=== PATIENT | male | born 1985 | race Caucasian/White ===

== ENCOUNTER 2018-05-15 08:14 | Emergency (ER) | payer OTHER ==
[~2018-05-15] VITALS: Ht 182.9 cm; Wt 79.6 kg
[2018-05-15 09:20] LABS: BASOPHILS # (AUTO) 0.05 x10^3/uL (0-0.1); BASOPHILS % (AUTO) 1 % (0-1); EOSINOPHILS # (AUTO) 0.05 x10^3/uL (0-0.4); EOSINOPHILS % (AUTO) 1 % (1-7); LYMPHOCYTES # (AUTO) 1.01 x10^3/uL (1-3.4); LYMPHOCYTES % (AUTO) 13 % (22-44); MD NO; MEAN CORPUSCULAR HEMOGLOBIN 28.4 pg (27.5-34.5); MEAN CORPUSCULAR HGB CONC 33.5 g/dL (33.2-36.2); MEAN CORPUSCULAR VOLUME 84.8 fL (81-97); MEAN PLATELET VOLUME 7.5 fL (7.4-10.4); MONOCYTES # (AUTO) 0.74 x10^3/uL (0.2-0.8); MONOCYTES % (AUTO) 9 % (2-9); NEUTROPHILS # (AUTO) 6.15 x10^3/uL (1.8-6.8); NEUTROPHILS % (AUTO) 77 % (42-75); PLATELET COUNT 237 x10^3/uL (130-400); RED BLOOD COUNT 5.23 x10^6/uL (4.38-5.82); RED CELL DISTRIBUTION WIDTH 12.9 % (9.4-14.8)
[2018-05-15 09:32] LABS: ALANINE AMINOTRANSFERASE 23 U/L (12-78); ALBUMIN 3.3 g/dL (3.4-5.0); ANION GAP 9 mmol/L (5-15); CHLORIDE 103 mmol/L (98-107); CREATININE 1.07 mg/dL (0.7-1.3)
[2018-05-15 09:36] LABS: ALKALINE PHOSPHATASE 62 U/L (45-117); BILIRUBIN,TOTAL 0.8 mg/dL (0.2-1.0); TOTAL PROTEIN 7.2 g/dL (6.4-8.2); TROPONIN I < 0.015 ng/mL (0.000-0.045)
[2018-05-15 10:45] VITALS: BP 115/71
== END 2018-05-15 10:48 | disposition home or self-care (01) ==
LOC: ED 10:40
DX: R07.89 Other chest pain (principal); J15.9 Unspecified bacterial pneumonia
CPT/HCPCS: 36415; 71046; 80053; 83690; 84484; 85025; 93005; 99285

== ENCOUNTER 2018-05-18 14:34 | Emergency (ER) | payer OTHER ==
[~2018-05-18] VITALS: Ht 182.9 cm; Wt 79.1 kg
[2018-05-18] MEDS ORDERED: MORPHINE SULFATE 4 MG/ML, 1ML ONE (15:24)
[2018-05-18] MEDS ORDERED: KETOROLAC 30 MG/1 ML ONE (15:24)
[2018-05-18] MEDS ORDERED: AZIT500T2 PO (15:29)
[2018-05-18] MEDS ORDERED: MORPHINE SULFATE 4 MG/ML, 1ML IVPush PRN (15:30)
[2018-05-18] MEDS ORDERED: KETOROLAC 30 MG/1 ML IVPush ONE (15:30)
[2018-05-18 15:32] LABS: ALANINE AMINOTRANSFERASE 23 U/L (12-78); ALBUMIN 3.4 g/dL (3.4-5.0); ANION GAP 8 mmol/L (5-15); CALCIUM 8.8 mg/dL (8.5-10.1); CHLORIDE 99 mmol/L (98-107); CREATININE 1.07 mg/dL (0.7-1.3)
[2018-05-18 15:34] LABS: ALKALINE PHOSPHATASE 88 U/L (45-117); BILIRUBIN,TOTAL 0.9 mg/dL (0.2-1.0); TOTAL PROTEIN 8.5 g/dL (6.4-8.2)
[2018-05-18 15:40] LABS: BASOPHILS # (AUTO) 0.03 x10^3/uL (0-0.1); BASOPHILS % (AUTO) 0 % (0-1); EOSINOPHILS # (AUTO) 0.02 x10^3/uL (0-0.4); EOSINOPHILS % (AUTO) 0 % (1-7); LYMPHOCYTES # (AUTO) 0.47 x10^3/uL (1-3.4); LYMPHOCYTES % (AUTO) 6 % (22-44); MD NO; MEAN CORPUSCULAR HEMOGLOBIN 29.2 pg (27.5-34.5); MEAN CORPUSCULAR HGB CONC 34.4 g/dL (33.2-36.2); MEAN CORPUSCULAR VOLUME 84.9 fL (81-97); MEAN PLATELET VOLUME 7.5 fL (7.4-10.4); MONOCYTES # (AUTO) 0.45 x10^3/uL (0.2-0.8); MONOCYTES % (AUTO) 6 % (2-9); NEUTROPHILS # (AUTO) 7.22 x10^3/uL (1.8-6.8); NEUTROPHILS % (AUTO) 88 % (42-75); PLATELET COUNT 306 x10^3/uL (130-400); RED BLOOD COUNT 5.03 x10^6/uL (4.38-5.82); RED CELL DISTRIBUTION WIDTH 12.7 % (9.4-14.8)
[2018-05-18] MEDS ORDERED: ACETAMINOPHEN 500 MG TABLET ONE (15:40)
[2018-05-18] MEDS ORDERED: COLE1TAB2 PO (15:53)
[2018-05-18] MEDS ORDERED: ACETAMINOPHEN 500 MG TABLET PO ONE (16:00)
[2018-05-18] MEDS ORDERED: CEFTRIAXONE PMX 2GM/50ML 50 ML ONE (16:21)
[2018-05-18] MEDS ORDERED: CEFTRIAXONE PMX 2GM/50ML 50 ML IV ONE (16:30)
[2018-05-18 17:14] VITALS: BP 116/75
== END 2018-05-18 17:27 | disposition home or self-care (01) ==
LOC: ED 15:26
DX: J18.1 Lobar pneumonia, unspecified organism (principal)
CPT/HCPCS: 36415; 71045; 80053; 83605; 84145; 85025; 87040; 93005; 96365; 96375; 99285; J0696; J1885

== ENCOUNTER → 2018-05-24 | Outpatient (CLI) | payer OTHER ==
[~2018-05-24] MED LIST: AZIT500T2 PO; COLE1TAB2 PO
== END | disposition home or self-care (01) ==
LOC: RAD 16:21
PROVIDERS: ATTEND Family Medicine
DX: J90 Pleural effusion, not elsewhere classified (principal); J98.11 Atelectasis
CPT/HCPCS: 71250

== ENCOUNTER 2018-05-25 16:30 | Inpatient (IN) | payer OTHER ==
[~2018-05-25] VITALS: Ht 182.9 cm; Wt 79.2 kg
[2018-05-25] MEDS: PIPERACILLIN/TAZO/PMX 3.375GM 50 ML IV SCH ×4 (02:00→20:00)
[2018-05-25 18:06] LABS: BASOPHILS # (AUTO) 0.06 x10^3/uL (0-0.1); BASOPHILS % (AUTO) 0 % (0-1); EOSINOPHILS # (AUTO) 0.11 x10^3/uL (0-0.4); EOSINOPHILS % (AUTO) 1 % (1-7); LYMPHOCYTES # (AUTO) 1.69 x10^3/uL (1-3.4); LYMPHOCYTES % (AUTO) 12 % (22-44); MD NO; MEAN CORPUSCULAR HEMOGLOBIN 28.3 pg (27.5-34.5); MEAN CORPUSCULAR HGB CONC 33.5 g/dL (33.2-36.2); MEAN CORPUSCULAR VOLUME 84.5 fL (81-97); MEAN PLATELET VOLUME 7.1 fL (7.4-10.4); MONOCYTES # (AUTO) 0.82 x10^3/uL (0.2-0.8); MONOCYTES % (AUTO) 6 % (2-9); NEUTROPHILS # (AUTO) 11.05 x10^3/uL (1.8-6.8); NEUTROPHILS % (AUTO) 81 % (42-75); PLATELET COUNT 607 x10^3/uL (130-400); RED BLOOD COUNT 4.74 x10^6/uL (4.38-5.82); RED CELL DISTRIBUTION WIDTH 13.6 % (9.4-14.8)
[2018-05-25 18:19] LABS: ALANINE AMINOTRANSFERASE 44 U/L (12-78); ALBUMIN 2.6 g/dL (3.4-5.0); ANION GAP 7 mmol/L (5-15); CALCIUM 9.2 mg/dL (8.5-10.1); CHLORIDE 98 mmol/L (98-107); CREATININE 0.85 mg/dL (0.7-1.3)
[2018-05-25 18:21] LABS: ALKALINE PHOSPHATASE 114 U/L (45-117); BILIRUBIN,TOTAL 0.6 mg/dL (0.2-1.0); TOTAL PROTEIN 8.1 g/dL (6.4-8.2)
[2018-05-25] MEDS ORDERED: PIPERACILLIN/TAZO/PMX 3.375GM 50 ML IV ONE (20:30)
[2018-05-25] MEDS ORDERED: VANCOMYCIN PER PHARMACY MC ONE (20:30)
[2018-05-25] MEDS ORDERED: PIPERACILLIN/TAZO/PMX 3.375GM 50 ML ONE (20:38)
[2018-05-25] MEDS ORDERED: BISACODYL 10 MG SUPP PR PRN (21:00)
[2018-05-25] MEDS ORDERED: VANCOMYCIN PMX 1GM/200ML 200 ML IV ONE (21:00)
[2018-05-25] MEDS ORDERED: VANCOMYCIN PER PHARMACY MC PRN (21:00)
[2018-05-25] MEDS ORDERED: ONDANSETRON 2MG/ML, 2ML IVPush PRN (21:00)
[2018-05-25] MEDS ORDERED: PROMETHAZINE 25 MG/ML, 1ML IM PRN (21:00)
[2018-05-25] MEDS: COLESTIPOL 1 GM TABLET PO SCH (21:00)
[2018-05-25] MEDS ORDERED: morphine SULFATE 10 MG/ML, 1ML IVPush PRN (21:00)
[2018-05-25] MEDS ORDERED: DOCUSATE 100 MG CAPSULE PO PRN (21:00)
[2018-05-25] MEDS ORDERED: ONDANSETRON ODT 4 MG PO PRN (21:00)
[2018-05-25] MEDS ORDERED: ACETAMINOPHEN 325 MG TABLET PO PRN (21:00)
[2018-05-25] MEDS ORDERED: POLYETHYLENE GLYCOL 17 GM PACKET PO PRN (21:00)
[2018-05-25] MEDS ORDERED: hydrALAzine 20 MG/ML, 1ML IVPush PRN (21:00)
[2018-05-25] MEDS ORDERED: LABETALOL 5MG/ML, 20ML IVPush PRN (21:00)
[2018-05-25 21:06] VITALS: BP 138/82
[2018-05-25 21:17] LABS: HEMOGLOBIN A1C 5.4 % (4.2-6.3)
[2018-05-25 21:18] LABS: FREE T4 (FREE THYROXINE) 1.44 ng/dL (0.76-1.46); THYROID STIMULATING HORMONE 1.25 mIU/L (0.358-3.740)
[2018-05-25] MEDS ORDERED: PHARMACOKINETIC CONSULTATION MC ONE (21:30)
[2018-05-25] MEDS ORDERED: PHARMACOKINETIC MONITORING MC PRN (21:30)
[2018-05-25 21:39] VITALS: BP 138/82
[2018-05-25] MEDS: VANCOMYCIN 1,500 MG in SODIUM CHLORIDE 0.9% 250 ML IV SCH (22:55)
[2018-05-25] MEDS: SODIUM CHLORIDE 0.9% 1,000 ML IV SCH (22:55)
[2018-05-26] MEDS: PIPERACILLIN/TAZO/PMX 3.375GM 50 ML IV SCH ×4 (01:49→20:33)
[2018-05-26] MEDS: HYDROcodone/APAP 5/325 TABLET PO PRN (01:53)
[2018-05-26 03:02] VITALS: BP 114/72
[2018-05-26 04:56] LABS: BASOPHILS # (AUTO) 0.02 x10^3/uL (0-0.1); BASOPHILS % (AUTO) 0 % (0-1); EOSINOPHILS # (AUTO) 0.12 x10^3/uL (0-0.4); EOSINOPHILS % (AUTO) 1 % (1-7); LYMPHOCYTES # (AUTO) 1.25 x10^3/uL (1-3.4); LYMPHOCYTES % (AUTO) 15 % (22-44); MD NO; MEAN CORPUSCULAR HEMOGLOBIN 28.6 pg (27.5-34.5); MEAN CORPUSCULAR HGB CONC 33.6 g/dL (33.2-36.2); MEAN CORPUSCULAR VOLUME 85.1 fL (81-97); MEAN PLATELET VOLUME 7.5 fL (7.4-10.4); MONOCYTES % (AUTO) 10 % (2-9); NEUTROPHILS # (AUTO) 6.01 x10^3/uL (1.8-6.8); NEUTROPHILS % (AUTO) 73 % (42-75); PLATELET COUNT 490 x10^3/uL (130-400); RED BLOOD COUNT 4.21 x10^6/uL (4.38-5.82); RED CELL DISTRIBUTION WIDTH 13.5 % (9.4-14.8)
[2018-05-26 05:08] LABS: ALBUMIN 2.1 g/dL (3.4-5.0); CALCIUM 8.1 mg/dL (8.5-10.1); CHLORIDE 100 mmol/L (98-107)
[2018-05-26 05:13] LABS: ALANINE AMINOTRANSFERASE 32 U/L (12-78); ALKALINE PHOSPHATASE 90 U/L (45-117); ANION GAP 8 mmol/L (5-15); BILIRUBIN,TOTAL 0.7 mg/dL (0.2-1.0); CHOLESTEROL, TOTAL 55 mg/dL (140-239); CREATININE 0.89 mg/dL (0.7-1.3); HDL CHOL % 20 % (26-37); HDL CHOLESTEROL (DIRECT) 11 mg/dL (40-60); LDL CHOLESTEROL,CALCULATED 24 mg/dL (54-169); LDL/HDL RATIO 2.2 (0.5-3.0); TOTAL PROTEIN 6.3 g/dL (6.4-8.2); TRIGLYCERIDES 101 mg/dL (50-200); VLDL CHOLESTEROL 20 mg/dL (0-25)
[2018-05-26 08:19] LABS: INTERNATIONAL NORMALIZED RATIO 1.14 (0.93-1.1); PROTHROMBIN TIME 11.7 Seconds (9.6-11.5)
[2018-05-26 08:41] VITALS: BP 123/79
[2018-05-26] MEDS: COLESTIPOL 1 GM TABLET PO SCH ×3 (09:00→20:33)
[2018-05-26] MEDS: SODIUM CHLORIDE 0.9% 1,000 ML IV SCH (10:10)
[2018-05-26] MEDS: VANCOMYCIN 1,500 MG in SODIUM CHLORIDE 0.9% 250 ML IV SCH ×2 (10:13→22:54)
[2018-05-26] MEDS ORDERED: SODIUM CHLORIDE 0.9% 1,000 ML IV SCH (12:00)
[2018-05-26] MEDS ORDERED: BUPIVACAINE/PF-EPI 0.5% 1:200K ONE (13:52)
[2018-05-26] MEDS ORDERED: MIDAZOLAM 1 MG/ML, 2ML ONE ×2 (14:10→16:22)
[2018-05-26] MEDS ORDERED: FENTANYL PF 100 MCG/2ML ONE ×3 (14:10→16:11)
[2018-05-26] MEDS ORDERED: DEXAMETHASONE 4 MG/ML, 1ML ONE (14:11)
[2018-05-26] MEDS ORDERED: ONDANSETRON 2MG/ML, 2ML ONE (14:11)
[2018-05-26] MEDS ORDERED: PROPOFOL 10 MG/ML, 20ML ONE (14:11)
[2018-05-26] MEDS ORDERED: METOCLOPRAMIDE 5 MG/ML, 2ML ONE (14:11)
[2018-05-26] MEDS ORDERED: GLYCOPYRROLATE 0.2MG/1ML, 5ML ONE (14:11)
[2018-05-26] MEDS ORDERED: NEOSTIGMINE 1 MG/ML, 10ML ONE (14:11)
[2018-05-26] MEDS ORDERED: ROCURONIUM 10 MG/ML,10ML ONE (14:11)
[2018-05-26] MEDS: HYDROmorphone 1 MG/ML, 1ML IV PRN ×4 (16:16→16:47)
[2018-05-26] MEDS: FENTANYL PF 100 MCG/2ML IV PRN ×2 (16:18→16:36)
[2018-05-26] MEDS: MIDAZOLAM 1 MG/ML, 2ML IV PRN ×2 (16:22→16:38)
[2018-05-26] MEDS ORDERED: ACETAMINOPHEN 650 MG/20.3 ML UDC ONE (16:22)
[2018-05-26] MEDS ORDERED: HYDROmorphone 2 MG/ML, 1ML ONE (16:23)
[2018-05-26] MEDS ORDERED: OXYcodone 5 MG/5 ML ORAL.SOL UDC ONE (16:23)
[2018-05-26] MEDS ORDERED: MEPERIDINE/PF 25MG/0.5ML IVPush PRN (16:30)
[2018-05-26] MEDS ORDERED: LABETALOL 5MG/ML, 20ML IV PRN (16:30)
[2018-05-26] MEDS ORDERED: ONDANSETRON 2MG/ML, 2ML IVPush PRN (16:30)
[2018-05-26] MEDS ORDERED: OXYcodone 5 MG/5 ML ORAL.SOL UDC PO PRN (16:30)
[2018-05-26] MEDS ORDERED: ACETAMINOPHEN 500 MG TABLET PO ONE (17:00)
[2018-05-26] MEDS ORDERED: MEPERIDINE/PF 50 MG/ML ONE (17:05)
[2018-05-26] MEDS ORDERED: ONDANSETRON 2MG/ML, 2ML IV PRN (19:00)
[2018-05-26] MEDS: ACETAMINOPHEN 500 MG TABLET PO SCH (19:52)
[2018-05-26] MEDS: D5%-0.45NACL+KCL 20MEQ 1,000 ML IV SCH (19:52)
[2018-05-26] MEDS: LOPERAMIDE 2 MG CAPSULE PO SCH (20:52)
[2018-05-26] MEDS ORDERED: LOPERAMIDE MC SCH (21:00)
[2018-05-26 21:32] VITALS: BP 100/66
[2018-05-27 01:02] VITALS: BP 119/73
[2018-05-27] MEDS: PIPERACILLIN/TAZO/PMX 3.375GM 50 ML IV SCH ×4 (01:47→21:23)
[2018-05-27] MEDS: ACETAMINOPHEN 500 MG TABLET PO SCH ×4 (01:47→20:00)
[2018-05-27 04:17] VITALS: BP 111/68
[2018-05-27] MEDS: ENOXAPARIN 40 MG/0.4 ML SQ SCH (05:50)
[2018-05-27 06:16] LABS: BASOPHILS # (AUTO) 0.03 x10^3/uL (0-0.1); BASOPHILS % (AUTO) 0 % (0-1); EOSINOPHILS # (AUTO) 0.18 x10^3/uL (0-0.4); EOSINOPHILS % (AUTO) 1 % (1-7); LYMPHOCYTES # (AUTO) 1.42 x10^3/uL (1-3.4); LYMPHOCYTES % (AUTO) 11 % (22-44); MD NO; MEAN CORPUSCULAR HEMOGLOBIN 28.1 pg (27.5-34.5); MEAN CORPUSCULAR HGB CONC 32.7 g/dL (33.2-36.2); MEAN CORPUSCULAR VOLUME 85.8 fL (81-97); MEAN PLATELET VOLUME 7.5 fL (7.4-10.4); MONOCYTES # (AUTO) 0.72 x10^3/uL (0.2-0.8); MONOCYTES % (AUTO) 6 % (2-9); NEUTROPHILS # (AUTO) 10.37 x10^3/uL (1.8-6.8); NEUTROPHILS % (AUTO) 82 % (42-75); PLATELET COUNT 655 x10^3/uL (130-400); RED BLOOD COUNT 4.35 x10^6/uL (4.38-5.82); RED CELL DISTRIBUTION WIDTH 13.8 % (9.4-14.8)
[2018-05-27 06:20] LABS: CHLORIDE 102 mmol/L (98-107)
[2018-05-27 06:30] LABS: ALBUMIN 1.8 g/dL (3.4-5.0); ANION GAP 7 mmol/L (5-15); CALCIUM 8.1 mg/dL (8.5-10.1); CREATININE 0.89 mg/dL (0.7-1.3)
[2018-05-27 07:35] VITALS: BP 118/74
[2018-05-27] MEDS: VANCOMYCIN 1,500 MG in SODIUM CHLORIDE 0.9% 250 ML IV SCH ×2 (11:16→23:47)
[2018-05-27 12:17] VITALS: BP 123/77
[2018-05-27] MEDS: COLESTIPOL 1 GM TABLET PO SCH ×2 (12:25→17:24)
[2018-05-27] MEDS: D5%-0.45NACL+KCL 20MEQ 1,000 ML IV SCH (15:25)
[2018-05-27 16:25] VITALS: BP 117/73
[2018-05-27] MEDS: LOPERAMIDE 2 MG CAPSULE PO SCH (17:27)
[2018-05-27 21:04] VITALS: BP 121/74
[2018-05-27] MEDS: HYDROcodone/APAP 5/325 TABLET PO PRN (23:48)
[2018-05-28 00:14] VITALS: BP 126/78
[2018-05-28] MEDS: PIPERACILLIN/TAZO/PMX 3.375GM 50 ML IV SCH ×2 (02:36→08:18)
[2018-05-28] MEDS: ACETAMINOPHEN 500 MG TABLET PO SCH ×4 (02:36→20:59)
[2018-05-28] MEDS: HYDROcodone/APAP 5/325 TABLET PO PRN (03:53)
[2018-05-28 04:04] VITALS: BP 120/74
[2018-05-28 05:06] LABS: BASOPHILS # (AUTO) 0.03 x10^3/uL (0-0.1); BASOPHILS % (AUTO) 0 % (0-1); EOSINOPHILS # (AUTO) 0.07 x10^3/uL (0-0.4); EOSINOPHILS % (AUTO) 1 % (1-7); LYMPHOCYTES # (AUTO) 1.69 x10^3/uL (1-3.4); LYMPHOCYTES % (AUTO) 17 % (22-44); MD NO; MEAN CORPUSCULAR HEMOGLOBIN 28.3 pg (27.5-34.5); MEAN CORPUSCULAR HGB CONC 33.3 g/dL (33.2-36.2); MEAN PLATELET VOLUME 7.3 fL (7.4-10.4); MONOCYTES # (AUTO) 0.73 x10^3/uL (0.2-0.8); MONOCYTES % (AUTO) 7 % (2-9); NEUTROPHILS # (AUTO) 7.61 x10^3/uL (1.8-6.8); NEUTROPHILS % (AUTO) 75 % (42-75); PLATELET COUNT 642 x10^3/uL (130-400); RED CELL DISTRIBUTION WIDTH 13.9 % (9.4-14.8)
[2018-05-28 05:07] LABS: ALBUMIN 1.8 g/dL (3.4-5.0); ANION GAP 5 mmol/L (5-15); CALCIUM 7.8 mg/dL (8.5-10.1); CHLORIDE 104 mmol/L (98-107); CREATININE 1.02 mg/dL (0.7-1.3)
[2018-05-28] MEDS: ENOXAPARIN 40 MG/0.4 ML SQ SCH (05:44)
[2018-05-28] MEDS ORDERED: OXYcodone IR 5MG TABLET ONE (08:07)
[2018-05-28] MEDS: D5%-0.45NACL+KCL 20MEQ 1,000 ML IV SCH ×2 (08:18→23:09)
[2018-05-28] MEDS: COLESTIPOL 1 GM TABLET PO SCH ×3 (08:21→16:32)
[2018-05-28] MEDS: OXYcodone IR 5MG TABLET PO PRN ×3 (08:25→23:10)
[2018-05-28 08:26] VITALS: BP 116/81
[2018-05-28] MEDS: VANCOMYCIN 1,500 MG in SODIUM CHLORIDE 0.9% 250 ML IV SCH (12:58)
[2018-05-28 13:04] VITALS: BP 130/86
[2018-05-28] MEDS: ERTAPENEM 1 GM in SODIUM CHLORIDE 0.9% 50 ML IV SCH (15:30)
[2018-05-28] MEDS: LOPERAMIDE 2 MG CAPSULE PO SCH (16:33)
[2018-05-28 16:37] VITALS: BP 128/68
[2018-05-28 18:44] VITALS: BP 112/72
[2018-05-29 01:43] VITALS: BP 120/76
[2018-05-29] MEDS: ACETAMINOPHEN 500 MG TABLET PO SCH ×4 (02:25→20:06)
[2018-05-29] MEDS: OXYcodone IR 5MG TABLET PO PRN ×4 (04:36→20:07)
[2018-05-29 04:48] VITALS: BP 120/81
[2018-05-29 05:35] LABS: CALCIUM 8.2 mg/dL (8.5-10.1); CHLORIDE 105 mmol/L (98-107)
[2018-05-29 05:38] LABS: ALBUMIN 1.9 g/dL (3.4-5.0); ANION GAP 5 mmol/L (5-15); CREATININE 0.91 mg/dL (0.7-1.3)
[2018-05-29 05:39] LABS: BASOPHILS # (AUTO) 0.03 x10^3/uL (0-0.1); BASOPHILS % (AUTO) 0 % (0-1); EOSINOPHILS # (AUTO) 0.08 x10^3/uL (0-0.4); EOSINOPHILS % (AUTO) 1 % (1-7); LYMPHOCYTES # (AUTO) 1.25 x10^3/uL (1-3.4); LYMPHOCYTES % (AUTO) 16 % (22-44); MD NO; MEAN CORPUSCULAR HEMOGLOBIN 27.9 pg (27.5-34.5); MEAN CORPUSCULAR HGB CONC 33.2 g/dL (33.2-36.2); MEAN CORPUSCULAR VOLUME 83.8 fL (81-97); MEAN PLATELET VOLUME 7.3 fL (7.4-10.4); MONOCYTES # (AUTO) 0.67 x10^3/uL (0.2-0.8); MONOCYTES % (AUTO) 8 % (2-9); NEUTROPHILS # (AUTO) 5.93 x10^3/uL (1.8-6.8); NEUTROPHILS % (AUTO) 75 % (42-75); PLATELET COUNT 625 x10^3/uL (130-400); RED CELL DISTRIBUTION WIDTH 13.7 % (9.4-14.8)
[2018-05-29 07:42] VITALS: BP 128/80
[2018-05-29] MEDS: ENOXAPARIN 40 MG/0.4 ML SQ SCH (07:57)
[2018-05-29] MEDS: COLESTIPOL 1 GM TABLET PO SCH ×3 (09:07→16:59)
[2018-05-29] MEDS: D5%-0.45NACL+KCL 20MEQ 1,000 ML IV SCH (12:20)
[2018-05-29 14:20] VITALS: BP 134/80
[2018-05-29] MEDS: ERTAPENEM 1 GM in SODIUM CHLORIDE 0.9% 50 ML IV SCH (15:29)
[2018-05-29] MEDS: LOPERAMIDE 2 MG CAPSULE PO SCH (16:59)
[2018-05-29 19:53] VITALS: BP 131/81
[2018-05-30] MEDS: OXYcodone IR 5MG TABLET PO PRN (00:42)
[2018-05-30 00:45] VITALS: BP 122/79
[2018-05-30] MEDS: D5%-0.45NACL+KCL 20MEQ 1,000 ML IV SCH ×2 (01:40→14:03)
[2018-05-30] MEDS: ACETAMINOPHEN 500 MG TABLET PO SCH ×4 (02:28→20:16)
[2018-05-30 02:45] VITALS: BP 128/81
[2018-05-30 07:48] VITALS: BP 134/76
[2018-05-30] MEDS: COLESTIPOL 1 GM TABLET PO SCH ×3 (08:23→17:14)
[2018-05-30] MEDS: ENOXAPARIN 40 MG/0.4 ML SQ SCH (08:24)
[2018-05-30 12:11] VITALS: BP 132/74
[2018-05-30 12:43] VITALS: BP 130/70
[2018-05-30] MEDS: ERTAPENEM 1 GM in SODIUM CHLORIDE 0.9% 50 ML IV SCH (13:58)
[2018-05-30] MEDS: LOPERAMIDE 2 MG CAPSULE PO SCH (17:14)
[2018-05-30 20:31] VITALS: BP 115/75
[2018-05-31 00:15] VITALS: BP 121/77
[2018-05-31] MEDS: ACETAMINOPHEN 500 MG TABLET PO SCH ×4 (02:10→20:20)
[2018-05-31] MEDS: D5%-0.45NACL+KCL 20MEQ 1,000 ML IV SCH ×2 (03:31→17:03)
[2018-05-31 04:05] VITALS: BP 132/74
[2018-05-31 05:33] LABS: BASOPHILS # (AUTO) 0.07 x10^3/uL (0-0.1); BASOPHILS % (AUTO) 1 % (0-1); EOSINOPHILS # (AUTO) 0.25 x10^3/uL (0-0.4); EOSINOPHILS % (AUTO) 4 % (1-7); LYMPHOCYTES # (AUTO) 2.07 x10^3/uL (1-3.4); LYMPHOCYTES % (AUTO) 30 % (22-44); MD NO; MEAN CORPUSCULAR HEMOGLOBIN 28.2 pg (27.5-34.5); MEAN CORPUSCULAR HGB CONC 33.4 g/dL (33.2-36.2); MEAN CORPUSCULAR VOLUME 84.5 fL (81-97); MEAN PLATELET VOLUME 6.9 fL (7.4-10.4); MONOCYTES # (AUTO) 0.44 x10^3/uL (0.2-0.8); MONOCYTES % (AUTO) 6 % (2-9); NEUTROPHILS # (AUTO) 4.17 x10^3/uL (1.8-6.8); NEUTROPHILS % (AUTO) 60 % (42-75); PLATELET COUNT 749 x10^3/uL (130-400); RED BLOOD COUNT 3.83 x10^6/uL (4.38-5.82); RED CELL DISTRIBUTION WIDTH 13.8 % (9.4-14.8)
[2018-05-31 05:40] LABS: HCT (SEDRATE) 32.3 % (39.2-51.8)
[2018-05-31 05:44] LABS: ALANINE AMINOTRANSFERASE 40 U/L (12-78); ANION GAP 5 mmol/L (5-15); CALCIUM 8.4 mg/dL (8.5-10.1); CHLORIDE 108 mmol/L (98-107); CREATININE 0.94 mg/dL (0.7-1.3)
[2018-05-31 05:51] LABS: ALKALINE PHOSPHATASE 77 U/L (45-117); BILIRUBIN,TOTAL 0.2 mg/dL (0.2-1.0); TOTAL PROTEIN 5.9 g/dL (6.4-8.2)
[2018-05-31 07:56] VITALS: BP 126/76
[2018-05-31] MEDS: ENOXAPARIN 40 MG/0.4 ML SQ SCH (08:34)
[2018-05-31] MEDS: COLESTIPOL 1 GM TABLET PO SCH ×3 (08:34→17:03)
[2018-05-31 13:43] VITALS: BP 125/74
[2018-05-31] MEDS: ERTAPENEM 1 GM in SODIUM CHLORIDE 0.9% 50 ML IV SCH (14:07)
[2018-05-31] MEDS: LOPERAMIDE 2 MG CAPSULE PO SCH (17:03)
[2018-05-31 20:21] VITALS: BP 121/76
[2018-06-01] MEDS: ACETAMINOPHEN 500 MG TABLET PO SCH ×3 (02:14→14:17)
[2018-06-01 02:16] VITALS: BP 118/72
[2018-06-01] MEDS: D5%-0.45NACL+KCL 20MEQ 1,000 ML IV SCH (07:00)
[2018-06-01 07:42] VITALS: BP 124/74
[2018-06-01] MEDS: COLESTIPOL 1 GM TABLET PO SCH ×2 (08:28→12:33)
[2018-06-01] MEDS: ENOXAPARIN 40 MG/0.4 ML SQ SCH (08:29)
[2018-06-01] MEDS: ERTAPENEM 1 GM in SODIUM CHLORIDE 0.9% 50 ML IV SCH (14:17)
[2018-06-01 15:32] VITALS: BP 127/72
[2018-06-01] MEDS ORDERED: ERTA1VIA IV (16:59)
== END 2018-06-01 18:05 | disposition home or self-care (01) | DRG 853 ==
LOC: ED 20:43 → EDIP 20:44 → ED 20:48 → 3NE 21:04 → 4NOR 05-26 18:10
PROVIDERS: ADMIT Internal Medicine; ATTEND Family Medicine
PROC: 0BCL4ZZ Extirpation of Matter from Left Lung, Percutaneous Endoscopic Approach (ICD-10-PCS; principal; 2018-05-26 13:30)
PROC: 02HV33Z Insertion of Infusion Device into Superior Vena Cava, Percutaneous Approach (ICD-10-PCS; 2018-05-29)
PROC: B5181ZA Fluoroscopy of Superior Vena Cava using Low Osmolar Contrast, Guidance (ICD-10-PCS; 2018-05-29)
PROC: B548ZZA Ultrasonography of Superior Vena Cava, Guidance (ICD-10-PCS; 2018-05-29)
DX: A41.9 Sepsis, unspecified organism (principal); J18.9 Pneumonia, unspecified organism; J86.9 Pyothorax without fistula; E44.0 Moderate protein-calorie malnutrition; E87.1 Hypo-osmolality and hyponatremia; J90 Pleural effusion, not elsewhere classified; D69.6 Thrombocytopenia, unspecified; K58.9 Irritable bowel syndrome, unspecified; Z79.2 Long term (current) use of antibiotics; Z80.0 Family history of malignant neoplasm of digestive organs; Z87.01 Personal history of pneumonia (recurrent); Z68.23 Body mass index [BMI] 23.0-23.9, adult
CPT/HCPCS: 36415; 77001; 83986; 84145; J3490; 36569; 71045; 76937; 80048; 80053; 80061; 80202; 82040; 83036; 83605; 83615; 83735; 84157; 84439; 84443; 85025; 85610; 85651; 85730; 86140; 87015; 87040; 87070; 87075; 87102; 87116; 87176; 87205; 87206; 88112; 88305; C1729; G0378; J1100; J1170; J1335; J1650; J2175; J2250; J2270; J2405; J2543; J2704; J2710; J3010; J3370; C1751; J2765; J3480; J7030; J7050

== ENCOUNTER → 2018-06-13 | Outpatient (CLI) | payer OTHER ==
[~2018-06-13] MED LIST changes: +ERTA1VIA IV
== END | disposition home or self-care (01) ==
LOC: RAD 10:42
PROVIDERS: ATTEND Internal Medicine Infectious Disease
DX: J92.9 Pleural plaque without asbestos (principal); A41.9 Sepsis, unspecified organism
CPT/HCPCS: 71250

== ENCOUNTER → 2018-08-06 | Outpatient (CLI) | payer OTHER | END | disposition home or self-care (01) | LOC: RAD 16:33 | PROVIDERS: ATTEND Family Medicine | DX: J18.1 Lobar pneumonia, unspecified organism (principal) | CPT/HCPCS: 71250 ==